=== PATIENT | female | born 1980 ===

== ENCOUNTER 2017-08-19 08:51 | Day surgery (SDC) | payer MEDICAID ==
[2017-07-24 11:18] VITALS: BMI 32.5
[2017-08-19] MEDS ORDERED: ceFAZolin IV 1 gm in Dextrose 2 GM/100 ML BAG IVPB ONE (09:51)
[2017-08-19 09:57] VITALS: RESP 18
[2017-08-19 10:08] LABS: BASO % 0.6 % (0.0-2.0); EOS # 0.2 K/uL (0.0-0.7); LYMPH # 2.4 K/uL (1.0-4.3); LYMPH % 42.6 % (20.0-40.0); MEAN CORPUSCULAR HGB CONC 31.3 g/dL (33.0-37.0); MEAN PLATELET VOLUME 9.1 fL (7.2-11.7); MONO # 0.3 K/uL (0.0-0.8); MONO % 5.3 % (0.0-10.0); NEUT # 2.6 K/uL (1.8-7.0); NEUT % 47.5 % (50.0-75.0); RBC 3.71 Mil/uL (3.80-5.20); RED CELL DISTRIBUTION WIDTH 16.9 % (11.5-14.5); WHITE BLOOD COUNT 5.6 K/uL (4.8-10.8)
[2017-08-19] MEDS ORDERED: Bupivacaine 0.25% Inj(30mL) IJ ONE (10:15)
[2017-08-19] MEDS ORDERED: Midazolam 2 MG/2 ML VIAL ONE (10:19)
[2017-08-19] MEDS ORDERED: Propofol 10 mg/ml Inj (20 ML) ONE (10:19)
[2017-08-19 10:21] LABS: HEMOGLOBIN 8.5 g/dL (11.0-16.0); MEAN CELL VOLUME 73.3 fL (81.0-99.0)
[2017-08-19] MEDS: Lidocaine/Epinephrine 1% 1:100000 10 ML IJ ONE ×2 (11:10→11:31)
[2017-08-19] MEDS: Bupivacaine 0.25% Inj(30mL) IJ ONE ×2 (11:31→11:56)
[2017-08-19] MEDS ORDERED: Neostigmine Methylsulfate 3mg/3ml Syringe IV ONE (12:00)
[2017-08-19] MEDS ORDERED: HYDROmorphone 0.5 mg/0.5 ml ISec IVP PRN (12:22)
--- NOTE | 2017-08-19 12:49 | PCM.SURG1 ---
Surgeon's Initial Post Op Note - Surgeon's Notes Surgeon: Anthony Rizvi MD Coordinator Of Online Programs: SHASHI Garvey Type of Anesthesia: General Endo Pre-Operative Diagnosis: Cholecystitis and Cholelithiasis. S/P Gastric Bypass. Possible Post Op adhesions Operative Findings: Cholecystitis and Cholelithiasis. S/P Gastric Bypass. Post Op adhesions Post-Operative Diagnosis: Cholecystitis and Cholelithiasis. S/P Gastric Bypass. Post Op adhesions Operation Performed: Robotic Cholecystectomy. Robotic Lysis of adhesions. Lap TAP block placement Specimen/Specimens Removed: Gall Bladder Estimated Blood Loss: EBL {In ML}: 10 Blood Products Given: N/A Drains Used: No Drains Post-Op Condition: Good Date of Surgery/Procedure: 08/19/17 Time of Surgery/Procedure: 12:49
[2017-08-19] MEDS ORDERED: Lactated Ringer's 1,000 ML IV ONE (13:55)
[2017-08-19 14:55] VITALS: BP 106/64; PULSE 58; TEMP 97; O2SAT 100
--- NOTE | 2017-08-19 23:32 | OP ---
PROCEDURE DATE: 08/19/2017 PREOPERATIVE DIAGNOSES: 1. Chronic cholecystitis and cholelithiasis. 2. Chronic anemia. POSTOPERATIVE DIAGNOSES: 1. Chronic cholecystitis and cholelithiasis. 2. Chronic anemia. PROCEDURE DONE: 1. Robotic cholecystectomy. 2. Laparoscopic bilateral TAP block placement. SURGEON: Hussain Rizvi MD DIGITAL PRINT OPERATOR: HAFSA Garvey TYPE OF ANESTHESIA: General endotracheal tube anesthesia. ESTIMATED BLOOD LOSS: Around 10 mL. DRAINS: None. PATHOLOGY: Gallbladder with gallstones was sent to the pathology. COMPLICATIONS: None. INTRAOPERATIVE FINDINGS: The patient had changes of chronic cholecystitis and cholelithiasis. DESCRIPTION OF PROCEDURE: On intraoperative steps, this is a 36-year-old female who was diagnosed with chronic cholecystitis and cholelithiasis. The patient was consented for robotic cholecystectomy possible open, brought to the OR, placed supine on the operating table. After induction of the anesthesia, the abdomen was prepped and draped in usual sterile fashion. The supraumbilical transverse incision was made after incising the skin and subcutaneous tissue and the fascia. The robotic camera port was placed. Pneumo was created. Another 3/8 mm port was placed in upper abdomen. Robot was brought in. Camera arm as well as arm 1 and arm 2 was docked, and the gallbladder had adhesions on the Calot's triangle as well as the body of the gallbladder and first the lysis of adhesion was done, and the duodenum that was stuck to the Calot's triangle that lysis of adhesion was done, and after that, the gallbladder was retracted cranially. Calot's triangle dissection was done. Cystic duct and cystic artery was identified. Intraoperative FireFly was used to identify the ductal anatomy. Cystic duct and cystic artery was identified, and clipped at 3 places and cut in between two clips in the gallbladder. The top down approach was done and the critical view of the safety was also identified before clipping the duct and artery, and after the gallbladder was dissected free from the gallbladder fossa, taken in EndoCatch, taken out through the umbilical port site, and was sent off the table for pathology. Now, the procedure was converted to laparoscopic and bilateral laparoscopic TAP block was given. A 30:30 mL of Marcaine was given on the right side as well as the left side in the transverse abdominis muscle plane, and after proper TAP block, all the ports were taken out under vision, pneumo was deflated. The umbilical port site was closed in two layers, the fascia with 0 Vicryl interrupted suture, skin with 4-0 Monocryl, and dry sterile dressing was applied. The patient tolerated the procedure well. Count of instrument and gauze was correct. There was no apparent complication. Hussain Rizvi MD
== END 2017-08-19 17:44 | disposition home or self-care (01) ==
LOC: C.SDS 08:51
PROVIDERS: ATTEND Surgery Surgical Critical Care
DX: K80.10 Calculus of gallbladder with chronic cholecystitis without obstruction (principal); D64.9 Anemia, unspecified; Z98.84 Bariatric surgery status
CPT/HCPCS: 36415; 47562; 85025; 86850; 86900; 88304; J0690; J1170; J2250; J2704; J2710; J3010; J7120